=== PATIENT | female | born 1940 | race Caucasian/White ===

== ENCOUNTER 2016-10-05 10:53 | Inpatient (IN) | payer BC ==
[2016-09-23 13:53] LABS: BASOPHILS 0.5 %; BASOPHILS ABSOLUTE 0.03 10/3/uL (0.0-0.16); EOSINOPHILS 3.1 %; HEMATOCRIT 40.7 % (36.0-48.0); HEMOGLOBIN 13.5 g/dL (12.0-16.0); IMMATURE GRANULOCYTES 0.2 %; IMMATURE GRANULOCYTES ABSOLUTE 0.01 10/3/uL (0.0-0.11); LYMPHOCYTES 39.5 %; LYMPHOCYTES ABSOLUTE 2.56 10/3/uL (0.67-4.30); MEAN CORPUS HGB CONC 33.2 g/dL (32.0-36.0); MEAN CORPUSCULAR HEMOGLOB 31.6 pg (26.0-34.0); MEAN CORPUSCULAR VOLUME 95.3 fL (80-100); MONOCYTES 8.6 %; MONOCYTES ABSOLUTE 0.56 10/3/uL (0.21-1.20); NEUTROPHILS 48.1 %; NEUTROPHILS ABSOLUTE 3.12 10/3/uL (2.02-8.40); PLATELET COUNT 195 10/3/uL (150-400); RBC DISTRIBUTION WIDTH 13.1 % (12.0-16.0); RED CELL COUNT 4.27 10/6/uL (4.0-5.6); WHITE BLOOD CELLS 6.5 10/3/uL (4.5-10.5)
[2016-09-23 13:54] LABS: MANUAL DIFF NO %
[2016-09-23 14:01] LABS: INTERNATIONAL NORMAL RATI 2.8 UNITS (-); PARTIAL THROMBO TIME 38.2 SEC (22.5-37.2)
[2016-09-23 14:03] LABS: PROTIME (NOT ORD) 29.3 SEC (12.0-14.5)
[2016-09-23 14:08] LABS: ALBUMIN 3.7 G/DL (3.5-5.0); ALKALINE PHOSPHATASE 71 U/L (45-117); CALCIUM, SERUM 8.8 MG/DL (8.5-10.4); CHLORIDE, SERUM 107 MMOL/L (96-112); CO2 (CARBON DIOXIDE) 29 MMOL/L (24-34); CREATININE 1.15 MG/DL (0.55-1.02); GFR AFRICAN AMERICAN 55 ML/MIN (>=60); GFR NON AFRICAN AMERICAN 47 ML/MIN (>=60); GLOBULIN 3.6 G/DL (2.5-4.1); POTASSIUM, SERUM 4.4 MMOL/L (3.5-5.3); SGOT(AST) 24 U/L (5-40); SGPT(ALT) 30 U/L (5-65); SODIUM, SERUM 143 MMOL/L (135-148); TOTAL BILIRUBIN 0.4 MG/DL (0-1.2); TOTAL PROTEIN 7.3 G/DL (6.0-8.5)
[2016-09-23 14:09] LABS: BUN (BLOOD UREA NITROGEN) 28 MG/DL (6-23); GLUCOSE, SERUM 107 MG/DL (60-99)
[2016-09-23 14:46] LABS: ASCORBIC ACID (UR NOT ORDER) NEG (NEG); BILIRUBIN, URINE NEGATIVE (NEG); KETONE, URINE NEGATIVE (NEG); LEUKOCYTE ESTERASE(NOT OR MOD (NEG); WBC (NOT ORDERED) (RFLEX) 6 (0-5)
--- NOTE | ~2016-10-05 | DS ---
Discharge Summary [facility] [address] [place]. [address] NAME: NICHOLAS ORO : 44 STATUS : DIS IN PAT#: [id number] AGE: 75 ADM/REG DATE : 10/05/16 MR#: [id number] REPORT SERV DATE: 10/19/16 DICTATED BY: ALMA LEGER DATE: 10/18/16 REPORT STATUS : Draft TRANSCRIBED BY: AYLEEN DATE: 10/18/16 Data Collection from hospitalization DISCHARGE DIAGNOSES: 1. Right knee arthritis with varus. 2. Hypertension. 3. Obesity. 4. Hypercholesterolemia. 5. Hypothyroidism. 6. Coronary artery disease. 7. History of congestive heart failure. 8. History of left leg lymphedema. 9. Stage II chronic kidney disease. CONSULTATIONS: None. PROCEDURES PERFORMED: Right total knee arthroplasty on 10/05/2016. PATHOLOGY: Bone and soft tissue, right knee - changes consistent with degenerative joint disease. MEDICATIONS: Aspirin 81 mg daily, Pepcid 20 mg every morning, Lasix 40 mg every 48 hours, Neurontin 300 mg three times a day, Synthroid 75 mcg daily, Cozaar 50 mg every morning, Lopressor 25 mg every morning, Roxicodone 5 mg every four hours as needed, Klor-Con 20 mEq every 48 hours as instructed, Zocor 20 mg at bedtime, and Jantoven 7 mg every evening. CONDITION AT DISCHARGE: Stable. DISPOSITION: The patient was discharged home on a regular diet with activities as instructed. She would follow up with Alexei Curtis on 10/20/2016. She would follow up at the [facility] in [place] on 10/12/2016 and at the [facility] for lab work on 10/12/2016. HOSPITAL COURSE: This is a 75-year-old female who has right knee arthritis with varus. Treatment options were discussed and it was elected to proceed with surgical intervention. She was admitted to the hospital at this time for further evaluation and treatment. Upon admission, she was taken to the operating room where she underwent the above-mentioned procedure. She tolerated this well, and there were no complications. On postop day #1, she was up sitting in a bedside chair. PENG hose were in place. Blood pressure was controlled. Metoprolol was continued. Nephrotoxic medications would be held. Creatinine level was 1.20. She was evaluated by Occupational and Physical Therapy. The Hemovac drain was removed. She continued to progress. Discharge planning was performed. On 10/08/2016, she was alert and cooperative. She had no focal deficits. She had normal distal pulses. Discharge instructions were given. Due to her improved and stable condition, she was discharged home to be followed by home health care with the above-stated instructions. Information collected by: Shereen Macario Discharge Summary [address] [address] NAME: NICHOLAS ORO : 44 STATUS : DIS IN PAT#: [id number] AGE: 75 ADM/REG DATE : 10/05/16 MR#: [id number] REPORT SERV DATE: 10/19/16 DICTATED BY: ALMA LEGER DATE: 10/18/16 REPORT STATUS : Draft TRANSCRIBED BY: AYLEEN DATE: 10/18/16 I submit the above information as my discharge summary. TG/AYLEEN Alma Leger M.D. / [id number] CC: Mary Ellen Connelly M.D.
--- NOTE | ~2016-10-05 | OP ---
Record Of Operation [facility] [address] [place]. [address] NAME: NICHOLAS ORO : 44 STATUS : ADM IN PAT#: [id number] AGE: 75 ADM/REG DATE : 10/05/16 MR#: [id number] REPORT SERV DATE: 10/05/16 DICTATED BY: ALMA LEGER DATE: 10/05/16 REPORT STATUS : Draft TRANSCRIBED BY: MODL DATE: 10/05/16 DATE OF PROCEDURE: 10/05/2016 PREOPERATIVE DIAGNOSIS: Right knee arthritis with varus. POSTOPERATIVE DIAGNOSIS: Right knee arthritis with varus. PROCEDURE PERFORMED: Right total knee arthroplasty. SURGEON: Alma Leger M.D. LEAD [employer] SOFTWARE ENGINEER: Mary Klein. ANESTHESIA: General with adductor block and local infusion. PROCEDURE IN DETAIL: The patient is clearly identified and after obtaining informed consent is brought to the operating room at [facility] where anesthesia is induced uneventfully with excellent anesthetic effect. Subsequently, the affected extremity is prepped and draped in the usual manner and after an appropriate time-out procedure is performed, via an anterior approach, the skin is divided, fascial planes are elevated, paramedial approach to the knee is made. The structures themselves are elevated, excised, and debrided were appropriate, whereupon the patella is carefully everted, calipered, and planed and with the size and type being reproduced with the appropriate-size patella, trialing is performed successfully. At this point, the patella is then carefully subluxed laterally, the knee is flexed, osteophytes around the distal femur are removed, followed by the ACL being divided. The femoral canal is entered and vented, at which point with the intramedullary guide being utilized, the distal femoral cut is made. At this point, the tibia is carefully subluxed anteriorly. The surrounding soft tissues to the tibia are protected with Hohmann retractors, at which point the extramedullary guide is utilized to perform the proximal tibial cut and after cleansing these tissues, the spacer block is utilized in extension to confirm excellent extension, stability, and alignment. The guiding pins are then all carefully removed and the knee is then flexed. The femur is sized, whereupon the anterior, posterior, chamfer, and box cuts are made appropriately. The proximal tibia then is assessed. Osteophytes and surrounding soft tissues are removed and debrided were appropriate. Posterior osteophytes are removed as well. The menisci are excised and thus concluding trialings performed successfully. The proximal tibia then is carefully prepared utilizing proper cement technique. The permanent implants have been carefully placed into position uneventfully where upon copious irrigations performed, the permanent tibial implants applied and thus concluded. The joint was then copiously irrigated, at which point it is closed carefully in layers including Vicryl and tanna for the skin, at which point Aquacel sterile dressing is applied. The patient is allowed to awaken and is transferred to the bed and subsequently to the recovery room in stable condition having tolerated the procedure well. ESTIMATED BLOOD LOSS: 150 mL. Record Of Operation [place] [id number] [facility] [place]. [address] NAME: NICHOLAS ORO : 44 STATUS : ADM IN [facility]#: [id number] AGE: 75 ADM/REG DATE : 10/05/16 MR#: [id number] REPORT SERV DATE: 10/05/16 DICTATED BY: ALMA LEGER DATE: 10/05/16 REPORT STATUS : Draft TRANSCRIBED BY: AYELEN DATE: 10/05/16 FLUIDS: 1200 mL. TOURNIQUET TIME: 44 minutes. PATHOLOGY: Sent specimen. MICROBIOLOGY: None. COMPLICATIONS: None. SPONGE AND NEEDLE COUNTS: Reportedly correct. ANTIBIOTICS: Administered appropriately preoperatively and ordered to be discontinued within 23 hours. IMPLANTS: Attune knee by DePuy, femur 6, narrow, tibia 5, patella 38, polyethylene 6/6. NASRIN/AYLEEN Alma Leger M.D. / [id number] CC: Alma Leger M.D.
[~2016-10-05 10:53] MED LIST: ALTA2.5 PO; ALTA5 PO; ASAB PO; BAC PO; COZ50 PO; DIL4TAB PO; HALF81 PO; JANTOVEN1 MG PO; JANTOVEN3 MG PO; JANTOVEN6 MG PO; KLOR-CON M2020 MEQ PO; L20 PO; LOP25 PO; LORTAB 5 PO; LOVENOX1C SC; LOVENOX40 SC; METHOC500B PO; MICRO-K10 MEQ PO; NEUR300 PO; NORV5 PO; PARAFON FORT OR; PEP20 PO; PREM625 PO; PRIN5 PO; SYN075 PO; SYN125 PO; TYLENOL ARTH650 MG PO; ULTRAM50 PO; VOLTXR100 PO; ZOCOR20 PO
[2016-10-05 11:56] LABS: INTERNATIONAL NORMAL RATI 1.1 UNITS (-)
[2016-10-05 11:59] LABS: PROTIME (NOT ORD) 13.6 SEC (12.0-14.5)
[2016-10-06 04:50] LABS: HEMOGLOBIN 10.8 g/dL (12.0-16.0)
[2016-10-06 04:57] LABS: HEMATOCRIT 32.9 % (36.0-48.0)
[2016-10-06 04:58] LABS: INTERNATIONAL NORMAL RATI 1.2 UNITS (-); PROTIME (NOT ORD) 14.9 SEC (12.0-14.5)
[2016-10-06 05:01] LABS: CALCIUM, SERUM 8.3 MG/DL (8.5-10.4); CHLORIDE, SERUM 106 MMOL/L (96-112); GFR AFRICAN AMERICAN 52 ML/MIN (>=60); GFR NON AFRICAN AMERICAN 45 ML/MIN (>=60); GLUCOSE, SERUM 119 MG/DL (60-99); SODIUM, SERUM 140 MMOL/L (135-148)
[2016-10-06 05:02] LABS: BUN (BLOOD UREA NITROGEN) 23 MG/DL (6-23); CO2 (CARBON DIOXIDE) 24 MMOL/L (24-34)
[2016-10-07 06:14] LABS: INTERNATIONAL NORMAL RATI 1.3 UNITS (-); PROTIME (NOT ORD) 16.2 SEC (12.0-14.5)
[2016-10-07 06:21] LABS: BASOPHILS 0.4 %; BASOPHILS ABSOLUTE 0.03 10/3/uL (0.0-0.16); EOSINOPHILS 1.4 %; EOSINOPHILS ABSOLUTE 0.12 10/3/uL (0.0-0.53); HEMATOCRIT 31.2 % (36.0-48.0); HEMOGLOBIN 10.3 g/dL (12.0-16.0); IMMATURE GRANULOCYTES 0.4 %; IMMATURE GRANULOCYTES ABSOLUTE 0.03 10/3/uL (0.0-0.11); LYMPHOCYTES 21.4 %; LYMPHOCYTES ABSOLUTE 1.77 10/3/uL (0.67-4.30); MEAN CORPUSCULAR HEMOGLOB 31.8 pg (26.0-34.0); MEAN CORPUSCULAR VOLUME 96.3 fL (80-100); MEAN PLATELET VOLUME 10.2 fL (9.2-13.0); MONOCYTES 13.8 %; MONOCYTES ABSOLUTE 1.14 10/3/uL (0.21-1.20); NEUTROPHILS 62.6 %; PLATELET COUNT 149 10/3/uL (150-400); RBC DISTRIBUTION WIDTH 13.3 % (12.0-16.0); WHITE BLOOD CELLS 8.3 10/3/uL (4.5-10.5)
[2016-10-07 06:33] LABS: BUN (BLOOD UREA NITROGEN) 23 MG/DL (6-23); CALCIUM, SERUM 8.3 MG/DL (8.5-10.4); CHLORIDE, SERUM 105 MMOL/L (96-112); CO2 (CARBON DIOXIDE) 26 MMOL/L (24-34); CREATININE 1.28 MG/DL (0.55-1.02); GFR AFRICAN AMERICAN 48 ML/MIN (>=60); GFR NON AFRICAN AMERICAN 41 ML/MIN (>=60); GLUCOSE, SERUM 110 MG/DL (60-99); POTASSIUM, SERUM 4.2 MMOL/L (3.5-5.3); SODIUM, SERUM 141 MMOL/L (135-148)
[2016-10-07 06:39] LABS: MANUAL DIFF NO %; RED CELL COUNT 3.24 10/6/uL (4.0-5.6)
[2016-10-08 05:50] LABS: BASOPHILS 0.3 %; BASOPHILS ABSOLUTE 0.02 10/3/uL (0.0-0.16); EOSINOPHILS 3.9 %; EOSINOPHILS ABSOLUTE 0.26 10/3/uL (0.0-0.53); HEMATOCRIT 29.3 % (36.0-48.0); HEMOGLOBIN 9.5 g/dL (12.0-16.0); IMMATURE GRANULOCYTES 0.3 %; IMMATURE GRANULOCYTES ABSOLUTE 0.02 10/3/uL (0.0-0.11); LYMPHOCYTES 28.3 %; LYMPHOCYTES ABSOLUTE 1.91 10/3/uL (0.67-4.30); MANUAL DIFF NO %; MEAN CORPUS HGB CONC 32.4 g/dL (32.0-36.0); MEAN CORPUSCULAR HEMOGLOB 31.4 pg (26.0-34.0); MEAN CORPUSCULAR VOLUME 96.7 fL (80-100); MEAN PLATELET VOLUME 10.1 fL (9.2-13.0); MONOCYTES 15.3 %; MONOCYTES ABSOLUTE 1.03 10/3/uL (0.21-1.20); NEUTROPHILS 51.9 %; NEUTROPHILS ABSOLUTE 3.51 10/3/uL (2.02-8.40); PLATELET COUNT 140 10/3/uL (150-400); RBC DISTRIBUTION WIDTH 13.3 % (12.0-16.0); RED CELL COUNT 3.03 10/6/uL (4.0-5.6); WHITE BLOOD CELLS 6.8 10/3/uL (4.5-10.5)
[2016-10-08 06:00] LABS: INTERNATIONAL NORMAL RATI 1.4 UNITS (-); PROTIME (NOT ORD) 17.4 SEC (12.0-14.5)
[2016-10-08 06:03] LABS: BUN (BLOOD UREA NITROGEN) 20 MG/DL (6-23); CHLORIDE, SERUM 109 MMOL/L (96-112); CO2 (CARBON DIOXIDE) 25 MMOL/L (24-34); CREATININE 1.13 MG/DL (0.55-1.02); GFR AFRICAN AMERICAN 56 ML/MIN (>=60); GFR NON AFRICAN AMERICAN 48 ML/MIN (>=60); GLUCOSE, SERUM 102 MG/DL (60-99); POTASSIUM, SERUM 4.3 MMOL/L (3.5-5.3); SODIUM, SERUM 143 MMOL/L (135-148)
[2016-10-08] MEDS ORDERED: OXYCOD PO (11:50)
== END 2016-10-08 12:48 | disposition home health service (06) | DRG 470 ==
LOC: SDC/OF 10:53 → PACU 14:59 → 3SO 16:17
PROVIDERS: Orthopaedic Surgery
PROC: 0SRC0J9 Replacement of Right Knee Joint with Synthetic Substitute, Cemented, Open Approach (ICD-10-PCS; principal; 2016-10-05 13:30)
DX: M21.161 Varus deformity, not elsewhere classified, right knee (principal); N17.9 Acute kidney failure, unspecified; Z68.41 Body mass index [BMI] 40.0-44.9, adult; E03.9 Hypothyroidism, unspecified; E78.5 Hyperlipidemia, unspecified; I25.10 Atherosclerotic heart disease of native coronary artery without angina pectoris; Z95.5 Presence of coronary angioplasty implant and graft; Z95.1 Presence of aortocoronary bypass graft; I12.9 Hypertensive chronic kidney disease with stage 1 through stage 4 chronic kidney disease, or unspecified chronic kidney disease; N18.9 Chronic kidney disease, unspecified; E66.9 Obesity, unspecified
CPT/HCPCS: 36415; 71020; 80048; 80053; 81001; 85014; 85018; 85025; 85610; 85730; 86850; 86900; 86901; 87086; 87641; 88305; 88311; 93005; 97110-GP; 97116-GP; 97161-GP; 97165-GO; 97535-GO; A9270-GY; C1776; J0360; J0690; J1885; J2250; J2274; J2405; J2710; J2795; J3010